=== PATIENT | male | born 1930 | race Caucasian/White ===

== ENCOUNTER 2018-02-07 00:27 | Inpatient (IN) ==
[2018-02-07] MEDS ORDERED: Ondansetron 4 MG/2 ML VIAL IVP ONE (01:14)
[2018-02-07] MEDS ORDERED: *HR* Nalbuphine 10 MG/ML AMPUL IV STA (01:30)
--- NOTE | 2018-02-07 01:40 | Emergency Department Note ---
Disposition Clinical Impression: Small bowel obstruction Abdominal pain Qualifiers: Abdominal location: generalized Qualified Code(s): R10.84 - Generalized abdominal pain Nausea and vomiting Qualifiers: Vomiting type: unspecified Vomiting Intractability: unspecified Qualified Code( s): R11.2 - Nausea with vomiting, unspecified Disposition: Admitted As Inpatient Condition: Fair Time of Disposition: 03:27 General Adult HPI - General Chief complaint: ED Abdominal Pain Stated complaint: abd pain Time Seen by Provider: 02/07/18 00:32 Source: EMS Mode of arrival: ambulatory Limitations: no limitations Nursing Notes Reviewed: Yes Vital Signs Reviewed: Yes - History of Present Illness HPI Narrative: Patient is a 7-year-old male with a past medical history of prostate cancer currently undergoing chemotherapy with recent radiation therapy presents for evaluation of intractable nausea and vomiting with abdominal distention. Patient was seen here earlier today in which she was visiting for acute urinary retention, abdominal pain, nausea vomiting. CT scan of his abdomen is done which showed no obstructing process. His nausea was well controlled and a Villanueva was placed for his urinary retention. Upon going home from discharge at approximately 1900 the patient had one glass of water and he has had 4-5 episodes of bilious emesis since then. He is brought back in for evaluation family is concerned that he is getting dehydrated. Pain Scale: 7 - Related Data Home Medications Medication Instructions Recorded Confirmed Cholecalciferol (D-3) [Vitamin D3] 1,000 unit PO DAILY 03/07/15 01/18/18 Clopidogrel [Plavix] 75 mg PO DAILY 03/07/15 01/18/18 Folic Acid 0.4 mg PO DAILY 03/07/15 01/18/18 Levothyroxine Sodium [Synthroid] 137 mcg PO DAILY 03/07/15 01/18/18 Metoprolol Tartrate 25 mg PO BID 03/07/15 01/18/18 Multivitamin [Multivitamins] 1 each PO DAILY 03/07/15 01/18/18 [place]-3 Fatty Acids/Fish Oil [Fish 1,000 mg PO DAILY 03/07/15 01/18/18 Oil 1,000 mg Capsule] Acetaminophen [Tylenol] 650 mg PO Q6HR PRN 02/28/17 01/18/18 Previous Rx's Medication Instructions Recorded Polyethylene Glycol 3350 [MiraLAX] 17 gm PO DAILY PRN #30 04/13/17 Furosemide [Lasix] 40 mg PO AD #15 tablet 08/31/17 Potassium Chloride [K-Tab ER] 10 meq PO AD #15 tablet.er 10/06/17 Abiraterone Acetate [Zytiga] 4 tab PO DAILY #120 tablet 12/13/17 predniSONE [PredniSONE] 5 mg PO BIDWM #60 tablet 01/10/18 Enzalutamide [Xtandi] 4 cap PO DAILY #120 capsule 01/18/18 Finasteride [Proscar] 1 tab PO DAILY #30 tablet 01/18/18 Omeprazole [PriLOSEC] 20 mg PO DAILY #30 cap 01/18/18 Morphine Immed Rel [Morphine 15 mg PO Q4HR PRN 3 Days #16 tab 02/06/18 Sulfate] Ondansetron ODT [Zofran ODT] 4 mg SL Q6HR PRN #12 tab.rapdis 02/06/18 Tamsulosin [Flomax] 2 cap PO DAILY #60 cap.er.24h 02/06/18 Allergies Allergy/AdvReac Type Severity Reaction Status Date / Time aspirin Allergy See Verified 01/11/18 15:19 Comments Onion Allergy Rash Verified 01/11/18 15:19 Penicillins Allergy See Verified 01/11/18 15:19 Comments All systems ED: reviewed and negative except as stated. Review of Systems: As Per HPI Constitutional: Denies: fever, chills Cardiovascular: Denies: chest pain, palpitations Respiratory: Denies: cough, dyspnea, wheezes Gastrointestinal: Reports: abdominal pain, nausea, vomiting. Denies: diarrhea, constipation, hematemesis, melena, hematochezia Genitourinary: Reports: other (villanueva in place) Past Medical History - Past Medical History Attestation: Yes The following information was validated with the patient. Medical history: Reports: cancer, hyperlipidemia, hypertension, myocardial infarction Surgical history: Reports: appendectomy, cholecystectomy Psychiatric history: Reports: no psych history - Social History Smoking Status: Never smoker Smokeless Tobacco Status: No Alcohol use: Reports: occasionally Drug use: Reports: none Physical Exam CONSTITUTIONAL: Alert and oriented X3, well-nourished, well appearing, in no apparent distress HEAD: Normocephalic; atraumatic. EYES: PERRL, no scleral icterus. NOSE: The nose is normal in appearance without rhinorrhea RESP: Normal chest excursion with respiration; breath sounds clear and equal bilaterally; no wheezes, rhonchi, or rales CARD: Regular rhythm, without murmurs, rub or gallop ABD: Distended; mild diffuse tenderness, soft,without rigidity, rebound or guarding SKIN: Normal for age and race; warm and dry; no apparent lesions - General Limitations: no limitations General appearance: alert, in no apparent distress Course Course Narrative: Plan at this time is to repeat basic labs. We will also order a KUB to rule out small bowel obstruction. Patient's nausea will be treated with Zofran and his pain with Nubain. We will reevaluate the patient. - Reevaluation(s) Reevaluation #1: Patient's KUB findings were suspicious for early to low grade obstruction rather than ileus. Patient will have an NG tube placed given that he continues to have emesis with IV antiemetics. I discussed the patient's case with the general surgeon insurance sales professional Dr. Garcia he agrees to see the patient the morning. No other recommendations other than he agrees with NG tube and keep the patient nothing by mouth. Time: 03:26 Vital Signs Temperature 98.1 F 02/07/18 00:28 Pulse Rate 75 02/07/18 00:28 Respiratory Rate 20 02/07/18 00:28 Blood Pressure 139/64 02/07/18 00:28 O2 Sat by Pulse Oximetry 94 02/07/18 00:28 Temperature 98.1 F 02/07/18 00:28 Pulse Rate 72 02/07/18 04:00 Respiratory Rate 20 02/07/18 00:28 Blood Pressure 133/65 02/07/18 04:00 O2 Sat by Pulse Oximetry 94 02/07/18 04:00 Oxygen Delivery Oxygen Delivery Room Air Medical Decision Making - Medical Records Medical records reviewed: Yes I reviewed the patient's medical records. - Lab Data Lab results reviewed: Yes I reviewed the patient's lab results. Result diagrams: 02/07/18 01:35 02/07/18 01:36 Lab Results 02/07/18 02/07/18 Range/Units 01:35 01:36 WBC 8.7 (4.3-11.1) K/mcL RBC 4.03 L (4.19-5.50) M/mcL Hgb 12.5 L (12.9-16.9) g/dL Hct 37.6 (37.5-50.1) % MCV 93.3 (83.0-100.0) fL MCH 31.0 (28.0-33.3) pg MCHC 33.2 (31.6-35.5) g/dL RDW 15.5 H (11.5-14.5) % Plt Count 137 L (140-400) K/mcL MPV 10.3 (9.4-12.4) fL Immature Gran % 0.3 (0-4) % Seg Neutrophils % 84.4 % Lymphocytes % 8.4 % Monocytes % 5.9 % Eosinophils % 0.8 % Basophils % 0.2 % Neutrophils # 7.4 (1.6-8.9) K/mcL Lymphocytes # 0.7 (0.6-4.6) K/mcL Monocytes # 0.5 (0.0-1.3) K/mcL Eosinophils # 0.1 (0.0-0.6) K/mcL Basophils # 0.0 (0.0-0.2) K/mcL Sodium 138 (136-145) mEq/L Potassium 4.0 (3.5-5.1) mEq/L Chloride 106 (98-107) mEq/L Carbon Dioxide 23 (23-29) mEq/L BUN 13 (8-23) mg/dL Creatinine 0.99 (0.70-1.30) mg/dL Est GFR ( Amer) > 60 (> 60) Est GFR (Non-Af Amer) > 60 (> 60) BUN/Creatinine Ratio 13 (6-26) Glucose 143 H (70-105) mg/dL Calculated Osmolality 289 (280-300) Calcium 9.9 (8.6-10.3) mg/dL Total Bilirubin 1.0 (0.3-1.0) mg/dL Direct Bilirubin 0.3 H (0.0-0.2) mg/dL Indirect Bilirubin 0.7 (0.0-1.2) mg/dL AST 19 (13-39) Units/L ALT 13 (7-52) Units/L Alkaline Phosphatase 108 H (34-104) Units/L Serum Total Protein 6.4 (6.4-8.9) g/dL Albumin 3.6 (3.5-5.7) g/dL Globulin 2.8 (2.4-3.5) g/dL Albumin/Globulin Ratio 1.3 (1.1-2.2) Lipase 8 L (11-82) Units/L - Radiology Data Radiology results reviewed: Yes I reviewed the patient's radiology results. KUB X-Ray 02/07/18 01:37 IMPRESSION: Findings suspicious for early/low-grade obstruction rather than ileus. D/ / Clarence Hsu / Clarence Hsu Interpreting Provider: Clarence Hsu
[2018-02-07 01:47] LABS: Hematocrit 37.6 % (37.5-50.1); Hemoglobin 12.5 g/dL (12.9-16.9); Mean Corpuscular Volume 93.3 fL (83.0-100.0); Red Blood Count 4.03 M/mcL (4.19-5.50)
[2018-02-07 01:48] LABS: Basophils % 0.2 %; Eosinophils # 0.1 K/mcL (0.0-0.6); Eosinophils % 0.8 %; Immature Granulocytes % 0.3 % (0-4); Lymphocytes # 0.7 K/mcL (0.6-4.6); Lymphocytes % 8.4 %; Mean Corpuscular HGB Conc 33.2 g/dL (31.6-35.5); Mean Platelet Volume 10.3 fL (9.4-12.4); Monocytes # 0.5 K/mcL (0.0-1.3); Monocytes % 5.9 %; Neutrophils # 7.4 K/mcL (1.6-8.9); Platelet Count 137 K/mcL (140-400); Red Cell Distribution Width 15.5 % (11.5-14.5); Segmented Neutrophils % 84.4 %
--- NOTE | 2018-02-07 02:04 | Emergency Department Note ---
Disposition Clinical Impression: Small bowel obstruction Abdominal pain Qualifiers: Abdominal location: generalized Qualified Code(s): R10.84 - Generalized abdominal pain Nausea and vomiting Qualifiers: Vomiting type: unspecified Vomiting Intractability: unspecified Qualified Code( s): R11.2 - Nausea with vomiting, unspecified Disposition: Admitted As Inpatient Condition: Fair Referrals: Kai Mahan MD [Primary Care Provider] - Forms: ED Satisfaction Letter, Work/School Release General Adult HPI - General Chief complaint: ED Abdominal Pain Stated complaint: abd pain Time Seen by Provider: 02/07/18 00:32 Source: EMS Mode of arrival: ambulatory Limitations: no limitations Nursing Notes Reviewed: Yes Vital Signs Reviewed: Yes - History of Present Illness Pain Scale: 7 - Related Data Home Medications Medication Instructions Recorded Confirmed Cholecalciferol (D-3) [Vitamin D3] 1,000 unit PO DAILY 03/07/15 01/18/18 Clopidogrel [Plavix] 75 mg PO DAILY 03/07/15 01/18/18 Folic Acid 0.4 mg PO DAILY 03/07/15 01/18/18 Levothyroxine Sodium [Synthroid] 137 mcg PO DAILY 03/07/15 01/18/18 Metoprolol Tartrate 25 mg PO BID 03/07/15 01/18/18 Multivitamin [Multivitamins] 1 each PO DAILY 03/07/15 01/18/18 [place]-3 Fatty Acids/Fish Oil [Fish 1,000 mg PO DAILY 03/07/15 01/18/18 Oil 1,000 mg Capsule] Acetaminophen [Tylenol] 650 mg PO Q6HR PRN 02/28/17 01/18/18 Previous Rx's Medication Instructions Recorded Polyethylene Glycol 3350 [MiraLAX] 17 gm PO DAILY PRN #30 04/13/17 Furosemide [Lasix] 40 mg PO AD #15 tablet 08/31/17 Potassium Chloride [K-Tab ER] 10 meq PO AD #15 tablet.er 10/06/17 Abiraterone Acetate [Zytiga] 4 tab PO DAILY #120 tablet 12/13/17 predniSONE [PredniSONE] 5 mg PO BIDWM #60 tablet 01/10/18 Enzalutamide [Xtandi] 4 cap PO DAILY #120 capsule 01/18/18 Finasteride [Proscar] 1 tab PO DAILY #30 tablet 01/18/18 Omeprazole [PriLOSEC] 20 mg PO DAILY #30 cap 01/18/18 Morphine Immed Rel [Morphine 15 mg PO Q4HR PRN 3 Days #16 tab 02/06/18 Sulfate] Ondansetron ODT [Zofran ODT] 4 mg SL Q6HR PRN #12 tab.rapdis 02/06/18 Tamsulosin [Flomax] 2 cap PO DAILY #60 cap.er.24h 02/06/18 Allergies Allergy/AdvReac Type Severity Reaction Status Date / Time aspirin Allergy See Verified 01/11/18 15:19 Comments Onion Allergy Rash Verified 01/11/18 15:19 Penicillins Allergy See Verified 01/11/18 15:19 Comments Constitutional: Denies: fever, chills Cardiovascular: Denies: chest pain, palpitations Respiratory: Denies: cough, dyspnea, wheezes Gastrointestinal: Reports: abdominal pain, nausea, vomiting. Denies: diarrhea, constipation, hematemesis, melena, hematochezia Genitourinary: Reports: other (villanueva in place) Past Medical History - Past Medical History Medical history: Reports: cancer, hyperlipidemia, hypertension, myocardial infarction Surgical history: Reports: appendectomy, cholecystectomy Psychiatric history: Reports: no psych history - Social History Smoking Status: Never smoker Smokeless Tobacco Status: No Alcohol use: Reports: occasionally Drug use: Reports: none Physical Exam - General Limitations: no limitations General appearance: alert, in no apparent distress Course Vital Signs Temperature 98.1 F 02/07/18 00:28 Pulse Rate 75 02/07/18 00:28 Respiratory Rate 20 02/07/18 00:28 Blood Pressure 139/64 02/07/18 00:28 O2 Sat by Pulse Oximetry 94 02/07/18 00:28 Temperature 98.1 F 02/07/18 00:28 Pulse Rate 75 02/07/18 00:28 Respiratory Rate 20 02/07/18 00:28 Blood Pressure 139/64 02/07/18 00:28 O2 Sat by Pulse Oximetry 94 02/07/18 00:28 Oxygen Delivery Oxygen Delivery Room Air Medical Decision Making - Lab Data Result diagrams: 02/07/18 01:35 02/07/18 01:36 Lab Results 02/07/18 02/07/18 Range/Units 01:35 01:36 WBC 8.7 (4.3-11.1) K/mcL RBC 4.03 L (4.19-5.50) M/mcL Hgb 12.5 L (12.9-16.9) g/dL Hct 37.6 (37.5-50.1) % MCV 93.3 (83.0-100.0) fL MCH 31.0 (28.0-33.3) pg MCHC 33.2 (31.6-35.5) g/dL RDW 15.5 H (11.5-14.5) % Plt Count 137 L (140-400) K/mcL MPV 10.3 (9.4-12.4) fL Immature Gran % 0.3 (0-4) % Seg Neutrophils % 84.4 % Lymphocytes % 8.4 % Monocytes % 5.9 % Eosinophils % 0.8 % Basophils % 0.2 % Neutrophils # 7.4 (1.6-8.9) K/mcL Lymphocytes # 0.7 (0.6-4.6) K/mcL Monocytes # 0.5 (0.0-1.3) K/mcL Eosinophils # 0.1 (0.0-0.6) K/mcL Basophils # 0.0 (0.0-0.2) K/mcL Sodium 138 (136-145) mEq/L Potassium 4.0 (3.5-5.1) mEq/L Chloride 106 (98-107) mEq/L Carbon Dioxide 23 (23-29) mEq/L BUN 13 (8-23) mg/dL Creatinine 0.99 (0.70-1.30) mg/dL Est GFR ( Amer) > 60 (> 60) Est GFR (Non-Af Amer) > 60 (> 60) BUN/Creatinine Ratio 13 (6-26) Glucose 143 H (70-105) mg/dL Calculated Osmolality 289 (280-300) Calcium 9.9 (8.6-10.3) mg/dL Total Bilirubin 1.0 (0.3-1.0) mg/dL Direct Bilirubin 0.3 H (0.0-0.2) mg/dL Indirect Bilirubin 0.7 (0.0-1.2) mg/dL AST 19 (13-39) Units/L ALT 13 (7-52) Units/L Alkaline Phosphatase 108 H (34-104) Units/L Serum Total Protein 6.4 (6.4-8.9) g/dL Albumin 3.6 (3.5-5.7) g/dL Globulin 2.8 (2.4-3.5) g/dL Albumin/Globulin Ratio 1.3 (1.1-2.2) Lipase 8 L (11-82) Units/L Attestation Statement - Attestation Attestation: I, Mitch Hidalgo MD, personally evaluated this patient and discussed their management with the resident physician. I reviewed the resident's note and agree with the documented findings, medical decision making, and plan of care. 87-year-old male presents to the emergency department with a complaint of abdominal pain and pressure with nausea and vomiting for 1 day prior to arrival. Patient was seen here earlier for the same symptoms and had a complete workup including a CT of the abdomen and pelvis. He was just discharged from this emergency department about 6 hours prior to this visit. He did complain of urinary retention on the previous visit and a Villanueva catheter was inserted. The Villanueva catheter has been draining well but since going home he states that it has not helped with the abdominal pressure and discomfort. He did take some pain medication and nausea medication this evening have her has continued to have multiple episodes of vomiting and pain. He did have a bowel movement today. No fever. On examination patient is a well-developed obese elderly male in no acute distress. He is alert and oriented 3. There is no cyanosis or diaphoresis. Breath sounds are clear and equal bilaterally. Heart regular rate and rhythm with a grade 3/6 systolic murmur. Abdomen is soft with moderate diffuse tenderness to light palpation with mild guarding. Mild distention. Labs reviewed. KUB shows multiple distended loops of small bowel suspicious for early or low-grade obstruction. On comparison to the CT scan performed earlier today the appearance of the dilated small bowel loops looks very similar to me. Dr. Lara discussed the case with the surgeon pharmacy operations coordinator, Dr. Garcia. He recommended an NG tube and nothing by mouth and will follow the patient in the hospital. The hospitalist, Dr. Rehman, was consulted and accepted admission of the patient.
[2018-02-07 02:09] LABS: Alanine Aminotransferase 13 Units/L (7-52); Albumin 3.6 g/dL (3.5-5.7); Albumin/Globulin Ratio 1.3 (1.1-2.2); Alkaline Phosphatase 108 Units/L (34-104); Aspartate Amino Transferase 19 Units/L (13-39); BUN/Creatinine Ratio 13 (6-26); Bilirubin,Direct 0.3 mg/dL (0.0-0.2); Bilirubin,Indirect 0.7 mg/dL (0.0-1.2); Blood Urea Nitrogen 13 mg/dL (8-23); Calcium 9.9 mg/dL (8.6-10.3); Carbon Dioxide 23 mEq/L (23-29); Chloride 106 mEq/L (98-107); Globulin 2.8 g/dL (2.4-3.5); Glucose 143 mg/dL (70-105); Lipase 8 Units/L (11-82); Osmolality,Calculated 289 (280-300); Sodium 138 mEq/L (136-145); Total Protein 6.4 g/dL (6.4-8.9); eGFR For African Americans > 60 (> 60); eGFR For Non-African Americans > 60 (> 60)
[2018-02-07] MEDS ORDERED: Promethazine 12.5 MG in 0.9 % Sodium Chloride 50 ML IVPB STA (03:45)
[2018-02-07] MEDS ORDERED: Naloxone 0.4 MG/ML INJ IVP PRN (06:26)
[2018-02-07] MEDS ORDERED: *HR* Promethazine 25 MG/ML VIAL IM PRN (06:28)
[2018-02-07] MEDS ORDERED: *HR* Promethazine 25 MG/ML VIAL IVP PRN (06:31)
[2018-02-07] MEDS ORDERED: Ondansetron 4 MG/2 ML VIAL IVP PRN ×2 (06:32→11:16)
--- NOTE | 2018-02-07 06:36 | Internal Med History&Physical ---
Date of Encounter: 02/07/18 Time of Encounter: 05:00 Internal Medicine - H&P: HPI Chief complaint: Small bowel obstruction Admitted From: Home Plans for Post Hospital Care: Home History of present illness: Mr. Roberts is a 87 year old male Patient presented to the emergency room for nausea and vomiting twice today. He states that his nausea became worse and worse about 2 days ago, when he woke up. He says he felt cramps in his lower stomach, nothing seemed to make it better. His early CT showed no obstruction in his abdomen, but a repeat CT in the evening showed possible early to low-grade obstruction rather than ileus. He also received a Fernandez for urinary retention. After his discharge he tried drinking a glass of water he had multiple episodes of vomiting at home. At that point he returned, and the repeat CT showed the obstruction. NG tube was placed, and his nausea improved significantly. He denies fever, and currently he has no complaints. Dr. Maya of general surgery was called by the ER, and agreed to see the patient in the morning. Patient has a history of prostate cancer, and is currently undergoing chemotherapy with recent radiation. Past Med Surg Social Fam HX - Past Medical History Medical history: cancer, hyperlipidemia, hypertension, myocardial infarction Additional medical history: prostate CA Psychiatric history: no psych history - Past Surgical History Surgical History: appendectomy, cholecystectomy Additional surgical history: back surgery. nose surgery - Social History Smoking Status: Never smoker Smokeless Tobacco Status: No Alcohol use: occasionally Drug use: none Internal Medicine - H&P: Meds Cholecalciferol (D-3) [Vitamin D3] 1,000 unit PO DAILY 03/07/15 [History] Clopidogrel [Plavix] 75 mg PO DAILY 03/07/15 [History] Folic Acid 0.4 mg PO DAILY 03/07/15 [History] Levothyroxine Sodium [Synthroid] 137 mcg PO DAILY 03/07/15 [History] Metoprolol Tartrate 25 mg PO BID 03/07/15 [History] Multivitamin [Multivitamins] 1 each PO DAILY 03/07/15 [History] [place]-3 Fatty Acids/Fish Oil [Fish Oil 1,000 mg Capsule] 1,000 mg PO DAILY 03/07 [History] Acetaminophen [Tylenol] 650 mg PO Q6HR PRN 02/28/17 [History] Polyethylene Glycol 3350 [MiraLAX] 17 gm PO DAILY PRN #30 04/13/17 [Rx] Furosemide [Lasix] 40 mg PO AD #15 tablet 08/31/17 [Rx] Potassium Chloride [K-Tab ER] 10 meq PO AD #15 tablet.er 10/06/17 [Rx] Abiraterone Acetate [Zytiga] 4 tab PO DAILY #120 tablet 12/13/17 [Rx] predniSONE [PredniSONE] 5 mg PO BIDWM #60 tablet 01/10/18 [Rx] Enzalutamide [Xtandi] 4 cap PO DAILY #120 capsule 01/18/18 [Rx] Finasteride [Proscar] 1 tab PO DAILY #30 tablet 01/18/18 [Rx] Omeprazole [PriLOSEC] 20 mg PO DAILY #30 cap 01/18/18 [Rx] Morphine Immed Rel [Morphine Sulfate] 15 mg PO Q4HR PRN 3 Days #16 tab 02/06/18 [Rx] Ondansetron ODT [Zofran ODT] 4 mg SL Q6HR PRN #12 tab.rapdis 02/06/18 [Rx] Tamsulosin [Flomax] 2 cap PO DAILY #60 cap.er.24h 02/06/18 [Rx] 3 Allergy/AdvReac Type Severity Reaction Status Date / Time aspirin Allergy See Verified 01/11/18 15:19 Comments Onion Allergy Rash Verified 01/11/18 15:19 Penicillins Allergy See Verified 01/11/18 15:19 Comments All Systems PM: A 10-system review of systems was performed and is negative for pertinent findings except as documented above in the HPI. - Constitutional Vitals: Temp Pulse Resp BP Pulse Ox 98.9 F 89 15 158/75 94 02/07/18 04:44 02/07/18 04:44 02/07/18 04:44 02/07/18 04:44 02/07/18 04:44 General appearance: Present: A&O X 3, pleasant, no acute distress - Head Head exam: Present: normal inspection - Eye Eye exam: Present: EOMI, normal appearance - Neck Neck exam general surgery: Present: full ROM - Respiratory Respiratory exam: Present: CTAB. Absent: rales, respiratory distress, wheezes, tachypnea - Cardiovascular Cardiovascular exam: Present: RRR. Absent: diastolic murmur, distant heart sounds, rubs - GI/Abdominal GI/Abdominal exam: Present: hypoactive bowel sounds, soft, tenderness. Absent: firm, guarding Additional comments: Mild tenderness left lower quadrant, and epigastric area with palpation. - Extremities Exam Extremities exam: Present: warm, radial pulses palpable and symmetrical. Absent : tenderness - Neurological Exam Neurological exam: Present: strengths equal and symetr throughout. Absent: altered, facial droop, speech deficit - Psychiatric Psychiatric exam: Present: normal mood. Absent: anxious - Skin Skin exam: Present: normal color, warm. Absent: vesicles Internal Med - H&P Results - Labs CBC & Chem 7: 02/07/18 01:35 02/07/18 01:36 - Assessment and plan (1) Small bowel obstruction Current Visit: Yes Status: Acute Assessment and plan: Repeat CT this evening showed early/low-grade obstruction rather than ileus. NG tube was placed, and patient's nausea and vomiting improved. Patient currently feels much better. General surgery consulted by the ER Follow-up Gen. surgery recommendations Continue NG tube to wall suction Advance diet as tolerated when able. Consider repeat CT of abdomen to ensure small bowel obstruction resolution. (2) Abdominal pain Current Visit: Yes Status: Acute Assessment and plan: Now much improved after NG placement. Likely secondary to small bowel obstruction. Continue to monitor Treatment as above. Qualifiers: Abdominal location: generalized Qualified Code(s): R10.84 - Generalized abdominal pain (3) Nausea and vomiting Current Visit: Yes Status: Acute Assessment and plan: Now much improved with NG tube placement, as well as IV Phenergan and Zofran. Patient is not complaining of nausea at this time. Continue to monitor Continue NG tube Continue nausea medicine as needed. Qualifiers: Vomiting type: unspecified Vomiting Intractability: unspecified Qualified Code(s): R11.2 - Nausea with vomiting, unspecified (4) Prostate cancer Current Visit: No Status: Chronic Assessment and plan: Patient has a history of prostate cancer, currently undergoing radiation and chemotherapy. Continue current management. - Time Spent With Patient Total time spent is greater than 50% in coordination of care (as documented) at patient's floor/unit and/or counseling patient: Greater than 35 minutes
--- NOTE | 2018-02-07 10:53 | General Surgery Consult Note ---
<Merlene Santoyo Mariluz - Last Filed: 02/07/18 11:02> Date of Encounter: 02/07/18 Time of Encounter: 10:34 Assessment and Plan (1) Small bowel obstruction Current Visit: Yes Status: Acute Small bowel obstruction versus ileus per CT (see below). Plan: NPO, bowel rest NG to LIWS IVF per primary team PRN antiemetics, G.I. and DVT prophylaxis may have one half small cup of ice Q8 hours for comfort serial abd exams repeat am labs we will follow along with you CT/CT abd pelvis wo no iv no oral IMPRESSION: 1. Uncomplicated diverticulosis. 2. Mildly prominent small bowel loops without evidence of obstruction. 3. In the setting of radiation treatment, no CT evidence of radiation enteritis is appreciated. 4. Prostatomegaly in urinary bladder wall thickening, mild 5. Tiny right pleural effusion. 6. Numerous sclerotic osseous foci as described suspicious for blastic metastatic disease. (2) Prostate cancer Current Visit: No Status: Chronic Management per primary team (3) Bone metastases Current Visit: No Status: Chronic Per primary team History of Present Illness Consult date: 02/06/18 (Dr. Eliseo Garcia) Reason for consult: other (possible SBO) Requesting physician: Anatoly Lara History of present illness: Jovan is an 87-year-old male (who is somewhat of a poor historian stating he is unable to remember the names of his medications, timing or past medical history, and difficulty with the timeline present illness), with a past medical history of prostate cancer, ASHD, HTN, hyperlipidemia, and a surgical history of appendectomy, cholecystectomy, reported back in no surgery but he is unclear procedures. He is also unclear of the time that his appendectomy and cholecystectomy were performed however states it was completed in [place]. He denies a smoking or drug use history and occasionally uses alcohol. He presented on 02/07/2018 with a report of nausea and vomiting for at least the past 4 days, associated with abdominal cramps, and had no aggravating or alleviating factors. He reports he was unable to hold down any liquids. Per record review he presented to the emergency department twice prior to admission. He had a CT earlier in the day which showed no obstruction but a repeat CT in the evening showed a possible low-grade obstruction. He also had a fully placed given acute urinary retention. And NG tube was placed and the patient stated almost immediate improvement in his discomfort. He is currently undergoing chemotherapy and radiation with Dr. Haines. He has followed by Dr. Saravia for urology. He denies fever, chills, headache, or dizziness, chest pain, shortness of breath. He endorses generalized weakness, feeling generally ill, nausea, vomiting, and difficulty urinating. He states prior to admission his last bowel movement was approximately 2 days ago. He denies black, bloody, or tarry stool. Surgery has been asked to evaluate this patient for recommendations regarding a possible small bowel obstruction. Past Med Surg Social Fam HX - Past Medical History Medical history: cancer, hyperlipidemia, hypertension, myocardial infarction Additional medical history: prostate CA Psychiatric history: no psych history - Past Surgical History Surgical History: appendectomy, cholecystectomy Additional surgical history: back surgery. nose surgery - Social History Smoking Status: Never smoker Smokeless Tobacco Status: No Alcohol use: occasionally Drug use: none Medications and Allergies Cholecalciferol (D-3) [Vitamin D3] 1,000 unit PO DAILY 03/07/15 [History] Clopidogrel [Plavix] 75 mg PO DAILY 03/07/15 [History] Folic Acid 0.4 mg PO DAILY 03/07/15 [History] Levothyroxine Sodium [Synthroid] 137 mcg PO DAILY 03/07/15 [History] Metoprolol Tartrate 25 mg PO BID 03/07/15 [History] Multivitamin [Multivitamins] 1 each PO DAILY 03/07/15 [History] [place]-3 Fatty Acids/Fish Oil [Fish Oil 1,000 mg Capsule] 1,000 mg PO DAILY 03/07 [History] Acetaminophen [Tylenol] 650 mg PO Q6HR PRN 02/28/17 [History] Polyethylene Glycol 3350 [MiraLAX] 17 gm PO DAILY PRN #30 04/13/17 [Rx] Potassium Chloride [K-Tab ER] 10 meq PO AD #15 tablet.er 10/06/17 [Rx] predniSONE [PredniSONE] 5 mg PO BIDWM #60 tablet 01/10/18 [Rx] Enzalutamide [Xtandi] 4 cap PO DAILY #120 capsule 01/18/18 [Rx] Finasteride [Proscar] 1 tab PO DAILY #30 tablet 01/18/18 [Rx] Omeprazole [PriLOSEC] 20 mg PO DAILY #30 cap 01/18/18 [Rx] Morphine Immed Rel [Morphine Sulfate] 15 mg PO Q4HR PRN 3 Days #16 tab 02/06/18 [Rx] Ondansetron ODT [Zofran ODT] 4 mg SL Q6HR PRN #12 tab.rapdis 02/06/18 [Rx] Tamsulosin [Flomax] 2 cap PO DAILY #60 cap.er.24h 02/06/18 [Rx] Atorvastatin [Lipitor] 40 mg PO HS 02/07/18 [History] Oxybutynin [Ditropan] 5 mg PO BID 02/07/18 [History] 3 Allergy/AdvReac Type Severity Reaction Status Date / Time aspirin Allergy See Verified 01/11/18 15:19 Comments Onion Allergy Rash Verified 01/11/18 15:19 Penicillins Allergy See Verified 01/11/18 15:19 Comments Review of Systems All systems PM: reviewed and no additional remarkable complaints except as stated All systems PM: The remainder of the systems were reviewed and are negative General Surgery Exam Initial Vital Signs Temp Pulse Resp BP Pulse Ox 98.1 F 75 20 139/64 94 02/07/18 00:28 02/07/18 00:28 02/07/18 00:28 02/07/18 00:28 02/07/18 00:28 VITAL SIGNS: Reviewed. See [facility] GENERAL: In no apparent distress. HEENT: Normocephalic, atraumatic, pupils are equal and reactive, extraocular motions intact, oropharynx is pink and moist, there is no neck adenopathy or JVD noted. CHEST/RESPIRATORY: The thorax is free from signs of trauma. Lung sounds: clear to auscultation, normal respiratory effort CARDIAC: RRR. Systolic murmur noted.. VASCULAR: No Edema. 2+ peripheral pulses. ABDOMEN: soft, distended, tympanic, tender in the bilateral lower quadrants, absent bowel sounds. NG is present and there is approximately 150 mL of thick yellow output (suspected fecalant. Fernandez catheters in place). MUSCULOSKELETAL: Good range of motion of all major joints. Extremities without clubbing, cyanosis or edema. NEUROLOGIC EXAM: Drowsy and oriented x 3. Speech normal. Follows commands. PSYCHIATRIC: Mood normal. SKIN: No rash or lesions. Exam Initial Vital Signs Temp Pulse Resp BP Pulse Ox 98.1 F 75 20 139/64 94 02/07/18 00:28 02/07/18 00:28 02/07/18 00:28 02/07/18 00:28 02/07/18 00:28 Results - Labs 02/07/18 01:35 02/07/18 01:36 Abnormal lab results RBC 4.03 M/mcL (4.19-5.50) L 02/07/18 01:35 Hgb 12.5 g/dL (12.9-16.9) L 02/07/18 01:35 RDW 15.5 % (11.5-14.5) H 02/07/18 01:35 Plt Count 137 K/mcL (140-400) L 02/07/18 01:35 Glucose 143 mg/dL (70-105) H 02/07/18 01:36 POC Glucose 120 mg/dL (70-99) H 02/07/18 06:27 Direct Bilirubin 0.3 mg/dL (0.0-0.2) H 02/07/18 01:36 Alkaline Phosphatase 108 Units/L (34-104) H 02/07/18 01:36 Lipase 8 Units/L (11-82) L 02/07/18 01:36 All other labs normal. - Imaging Abdominal x-ray: report reviewed CT scan - abdomen: report reviewed CT scan - pelvis: report reviewed Consult Discharge Plan - Plan Referrals: Kai Mahan MD [Primary Care Provider] - <Eliseo Garcia - Last Filed: 02/07/18 21:53> Date of Encounter: 02/07/18 Review of Systems All systems PM: The remainder of the systems were reviewed and are negative General Surgery Exam Initial Vital Signs Temp Pulse Resp BP Pulse Ox 98.1 F 75 20 139/64 94 02/07/18 00:28 02/07/18 00:28 02/07/18 00:28 02/07/18 00:28 02/07/18 00:28 Exam Initial Vital Signs Temp Pulse Resp BP Pulse Ox 98.1 F 75 20 139/64 94 02/07/18 00:28 02/07/18 00:28 02/07/18 00:28 02/07/18 00:28 02/07/18 00:28 Results - Labs 02/07/18 01:35 02/07/18 01:36 Abnormal lab results RBC 4.03 M/mcL (4.19-5.50) L 02/07/18 01:35 Hgb 12.5 g/dL (12.9-16.9) L 02/07/18 01:35 RDW 15.5 % (11.5-14.5) H 02/07/18 01:35 Plt Count 137 K/mcL (140-400) L 02/07/18 01:35 Glucose 143 mg/dL (70-105) H 02/07/18 01:36 POC Glucose 100 mg/dL (70-99) H 02/07/18 17:19 Direct Bilirubin 0.3 mg/dL (0.0-0.2) H 02/07/18 01:36 Alkaline Phosphatase 108 Units/L (34-104) H 02/07/18 01:36 Lipase 8 Units/L (11-82) L 02/07/18 01:36 All other labs normal. - Attending Attestation patient seen and examined. i have reviewed all pertinent notes, imaging and labs. i agree with the above assessment and plan.
[2018-02-07] MEDS ORDERED: Saliva Stimulant 100ml BOTTLE PO PRN (11:14)
[2018-02-07] MEDS ORDERED: BENZOCAINE/MENTHOL 1 LOZENGE (BAG OF 6) MM PRN (11:15)
--- NOTE | 2018-02-07 11:50 | Event Note ---
Date of Encounter: 02/07/18 Time of Encounter: 11:42 Patient was seen earlier this morning by hospitalist. Patient was seen and examined at bedside. Presently denies any abdominal pain nausea vomiting. NG is patent and draining. Seen by general surgery this a.m. okay for ice chips at this time. We will initiate on IV fluids continue to monitor chemistry replace electrolytes as needed continue with antiemetics and bowel rest. IV treatment plan with patient and family who are at bedside who verbalized understanding.
[2018-02-07] MEDS: 0.9 % Sodium Chloride 1,000 ML IVC SCH (12:00)
[2018-02-07] MEDS: Pantoprazole 40 MG VIAL IVP SCH (18:51)
[2018-02-07] MEDS: *HR* Heparin 5,000 UNIT/ML VIAL SQ SCH (18:52)
[2018-02-08 02:01] LABS: Basophils % 0.5 %; Eosinophils # 0.2 K/mcL (0.0-0.6); Eosinophils % 2.3 %; Hematocrit 35.3 % (37.5-50.1); Hemoglobin 11.7 g/dL (12.9-16.9); Immature Granulocytes % 0.2 % (0-4); Lymphocytes # 1.2 K/mcL (0.6-4.6); Lymphocytes % 18.9 %; Mean Corpuscular HGB Conc 33.1 g/dL (31.6-35.5); Mean Corpuscular Hemoglobin 31.7 pg (28.0-33.3); Mean Corpuscular Volume 95.7 fL (83.0-100.0); Monocytes # 0.4 K/mcL (0.0-1.3); Monocytes % 6.5 %; Platelet Count 106 K/mcL (140-400); Red Blood Count 3.69 M/mcL (4.19-5.50); Red Cell Distribution Width 15.5 % (11.5-14.5); Segmented Neutrophils % 71.6 %
[2018-02-08 02:05] LABS: Neutrophils # 4.7 K/mcL (1.6-8.9)
[2018-02-08 03:24] LABS: BUN/Creatinine Ratio 13 (6-26); Blood Urea Nitrogen 12 mg/dL (8-23); Calcium 8.9 mg/dL (8.6-10.3); Carbon Dioxide 26 mEq/L (23-29); Chloride 108 mEq/L (98-107); Glucose 89 mg/dL (70-105); Magnesium 2.1 mg/dL (1.6-2.6); Osmolality,Calculated 287 (280-300); Phosphorous 2.3 mg/dL (2.7-4.5); Potassium 3.9 mEq/L (3.5-5.1); Sodium 139 mEq/L (136-145); eGFR For African Americans > 60 (> 60); eGFR For Non-African Americans > 60 (> 60)
[2018-02-08] MEDS: *HR* Heparin 5,000 UNIT/ML VIAL SQ SCH ×2 (05:55→18:13)
[2018-02-08] MEDS: Pantoprazole 40 MG VIAL IVP SCH ×2 (05:56→18:11)
[2018-02-08] MEDS: 0.9 % Sodium Chloride 1,000 ML IVC SCH (08:37)
[2018-02-08] MEDS ORDERED: Methyl Salicylate/Menthol 28 GM TUBE TP PRN (11:17)
--- NOTE | 2018-02-08 11:29 | Internal Med Progress Note ---
Date of Encounter: 02/08/18 Time of Encounter: 11:27 - Assessment and plan (1) Small bowel obstruction Current Visit: Yes Status: Acute Assessment and plan: Small bowel obstruction versus ileus Continue with nothing by mouth bowel rest T with NG low wall suction Continue IV fluids monitor intake and output Surgery has been consulted and appreciate recommendations May have one half small cup of ice every 8 hours per surgery (2) Abdominal pain Current Visit: Yes Status: Acute Assessment and plan: No pain at this time NG in place Continue to monitor, cont NG Surgery consulted and appreciate recommendations Qualifiers: Abdominal location: generalized Qualified Code(s): R10.84 - Generalized abdominal pain (3) Nausea and vomiting Current Visit: Yes Status: Acute Assessment and plan: Improved continue with NG for now antiemetics Phenergan and Zofran as needed Continue with IV fluids while nothing by mouth Qualifiers: Vomiting type: unspecified Vomiting Intractability: unspecified Qualified Code(s): R11.2 - Nausea with vomiting, unspecified (4) Prostate cancer Current Visit: No Status: Chronic Assessment and plan: History prostate cancer with bone metastases continue with oncology outpatient treatment consult as needed - Time Spent With Patient Total time spent is greater than 50% in coordination of care (as documented) at patient's floor/unit and/or counseling patient: - Subjective Interval history: Patient seen and examined at bedside. Complains of artriti pain in hand. Denies any N/V/D had an episode flatus no other gas passed. - Constitutional Vitals: Temp Pulse Resp BP Pulse Ox 97.7 F 59 15 129/71 93 02/08/18 07:29 02/08/18 07:29 02/08/18 07:29 02/08/18 07:29 02/08/18 07:29 General appearance: Present: A&O X 3, pleasant, no acute distress - Head Head exam: Present: atraumatic, normocephalic - Eye Eye exam: Present: PERRL, conjuntiva pink, sclera anicteric Pupils: Present: PERRL - Neck Neck exam general surgery: Present: supple, trachea midline. Absent: lymphadenopathy - Respiratory Respiratory exam: Present: CTAB. Absent: accessory muscle use, rales, rhonchi, wheezes - Cardiovascular Cardiovascular exam: Present: RRR, +S1, +S2. Absent: diastolic murmur, gallop, rubs, systolic murmur - GI/Abdominal GI/Abdominal exam: Present: normal bowel sounds, soft, no peritoneal signs. Absent: distended, tenderness - Extremities Exam Extremities exam: Present: warm, radial pulses palpable and symmetrical. Absent : calf tenderness, cyanotic, pedal edema - Neurological Exam Neurological exam: Present: CN II-XII intact, oriented X3, no focal deficits. Absent: pronater drift, facial droop, speech deficit - Skin Skin exam: Present: dry, intact Internal Medicine: Result - Labs CBC & Chem 7: 02/08/18 01:29 02/08/18 01:29 Labs: Short CBC 02/08/18 Range/Units 01:29 WBC 6.5 (4.3-11.1) K/mcL Hgb 11.7 L (12.9-16.9) g/dL Hct 35.3 L (37.5-50.1) % Plt Count 106 L (140-400) K/mcL Neutrophils # 4.7 (1.6-8.9) K/mcL BMP 02/08/18 01:29 Sodium 139 Potassium 3.9 Chloride 108 H Carbon Dioxide 26 BUN 12 Creatinine 0.96 Glucose 89 Calcium 8.9 - VTE Documentation of Mechanical Device: Intermittent pneumatic compression device Consult Discharge Plan - Plan Referrals: Kai Mahan MD [Primary Care Provider] -
--- NOTE | 2018-02-08 11:41 | General Surgery Progress Note ---
Date of Encounter: 02/08/18 Time of Encounter: 11:30 - Assessment and Plan (1) Small bowel obstruction Current Visit: Yes Status: Acute Small bowel obstruction versus ileus per CT Plan: NPO, bowel rest NG to LIWS 2V abdominal x-ray today Consider SBFT with gastrograffin in the next 24-48 hours Continue IVF per primary team G.I. and DVT prophylaxis may have one half small cup of ice Q8 hours for comfort serial abd exams Surgery will continue to follow along and assess progress (2) Prostate cancer Current Visit: No Status: Chronic (3) Bone metastases Current Visit: No Status: Chronic Subjective Patient reports: no new complaints, feels better, flatus (small amount of flatus this morning), afebrile Objective Vital Signs - Last 8 Hours Temp Pulse Resp BP Pulse Ox 02/08/18 07:29 97.7 F 59 15 129/71 93 02/08/18 04:14 98.1 F 67 16 127/76 94 Intake and Output 02/07/18 02/08/18 02/08/18 23:59 07:59 15:59 Intake Total 0 / 0 0 / 0 1000 / 1000 Output Total 550 / 550 450 / 450 Balance -550 / -550 -450 / -450 1000 / 1000 Intake: IV Fluids 1000 / 1000 0.9 % Sodium Chloride 1,000 ML 1000 / 1000 @ 50 mls/hr IVC .Q20H [facility] Rx#: [id number] Oral 0 / 0 0 / 0 0 / 0 Output: Catheter 400 / 400 250 / 250 Gastric Drainage 150 / 150 200 / 200 Other: Meal NPO Percent of Meal Consumed 0% Weight 105.5 kg Blood Glucose* 95 84 Patient Weight 02/08/18 23:59 Weight 105.5 kg - General physical appearance well developed, well nourished, no distress - Eyes normal ocular movement - ENT dry mucosa, atraumatic, normocephalic - Neck Neck exam: trachea midline - Respiratory normal respiratory effort, clear to auscultation - Cardiovascular Cardiovascular exam: Present: RRR - Abdomen Abdomen: Present: bowel sounds present (minimal, hypoactive), soft, non tender, wound (NG tube to LIWS with approximately 300ml of drainage since midnight) - Genitourinary other (villan[place] catheter to SD) - Neurologic CN 2-12 grossly intact - Psychiatric oriented to time, oriented to person, oriented to place, speech is normal, memory intact - Labs 02/08/18 01:29 02/08/18 01:29 Diabetes panel 02/08/18 Range/Units 01:29 Sodium 139 (136-145) mEq/L Potassium 3.9 (3.5-5.1) mEq/L Chloride 108 H (98-107) mEq/L Carbon Dioxide 26 (23-29) mEq/L BUN 12 (8-23) mg/dL Creatinine 0.96 (0.70-1.30) mg/dL Glucose 89 (70-105) mg/dL Calcium 8.9 (8.6-10.3) mg/dL Calcium panel 02/08/18 Range/Units 01:29 Calcium 8.9 (8.6-10.3) mg/dL Phosphorus 2.3 L (2.7-4.5) mg/dL Pituitary panel 02/08/18 Range/Units 01:29 Sodium 139 (136-145) mEq/L Potassium 3.9 (3.5-5.1) mEq/L Chloride 108 H (98-107) mEq/L Carbon Dioxide 26 (23-29) mEq/L BUN 12 (8-23) mg/dL Creatinine 0.96 (0.70-1.30) mg/dL Glucose 89 (70-105) mg/dL Calcium 8.9 (8.6-10.3) mg/dL Adrenal panel 02/08/18 Range/Units 01:29 Sodium 139 (136-145) mEq/L Potassium 3.9 (3.5-5.1) mEq/L Chloride 108 H (98-107) mEq/L Carbon Dioxide 26 (23-29) mEq/L BUN 12 (8-23) mg/dL Creatinine 0.96 (0.70-1.30) mg/dL Glucose 89 (70-105) mg/dL Calcium 8.9 (8.6-10.3) mg/dL - VTE Documentation of Mechanical Device: Intermittent pneumatic compression device Consult Discharge Plan - Plan Referrals: Kai Mahan MD [Primary Care Provider] - - Attending Attestation For this encounter, I have reviewed the CABLE INSPECTOR or PA documentation, treatment plan, and medical decision making; and I have had face to face time with this patient.
[2018-02-08] MEDS: MethylPREDNISolone 40 MG/ML VIAL IVP SCH (18:09)
[2018-02-09] MEDS: 0.9 % Sodium Chloride 1,000 ML IVC SCH (06:24)
[2018-02-09] MEDS: Pantoprazole 40 MG VIAL IVP SCH ×2 (06:25→18:04)
[2018-02-09] MEDS: MethylPREDNISolone 40 MG/ML VIAL IVP SCH (06:25)
[2018-02-09] MEDS: *HR* Heparin 5,000 UNIT/ML VIAL SQ SCH ×2 (06:25→18:04)
[2018-02-09 06:50] LABS: Basophils % 0.2 %; Eosinophils # 0.1 K/mcL (0.0-0.6); Eosinophils % 1.8 %; Hematocrit 34.3 % (37.5-50.1); Hemoglobin 11.4 g/dL (12.9-16.9); Immature Granulocytes % 0.6 % (0-4); Lymphocytes # 1.2 K/mcL (0.6-4.6); Lymphocytes % 19.4 %; Mean Corpuscular HGB Conc 33.2 g/dL (31.6-35.5); Mean Corpuscular Hemoglobin 31.8 pg (28.0-33.3); Mean Corpuscular Volume 95.5 fL (83.0-100.0); Mean Platelet Volume 10.2 fL (9.4-12.4); Monocytes # 0.4 K/mcL (0.0-1.3); Monocytes % 6.9 %; Neutrophils # 4.4 K/mcL (1.6-8.9); Platelet Count 101 K/mcL (140-400); Red Blood Count 3.59 M/mcL (4.19-5.50); Red Cell Distribution Width 15.3 % (11.5-14.5); Segmented Neutrophils % 71.1 %
[2018-02-09 07:08] LABS: BUN/Creatinine Ratio 15 (6-26); Blood Urea Nitrogen 13 mg/dL (8-23); Calcium 8.8 mg/dL (8.6-10.3); Carbon Dioxide 24 mEq/L (23-29); Chloride 110 mEq/L (98-107); Glucose 77 mg/dL (70-105); Osmolality,Calculated 289 (280-300); Potassium 3.8 mEq/L (3.5-5.1); Sodium 140 mEq/L (136-145); eGFR For African Americans > 60 (> 60); eGFR For Non-African Americans > 60 (> 60)
--- NOTE | 2018-02-09 10:44 | Internal Med Progress Note ---
Date of Encounter: 02/09/18 Time of Encounter: 10:44 - Assessment and plan (1) Small bowel obstruction Current Visit: Yes Status: Acute Assessment and plan: Small bowel obstruction versus ileus Stop IV fluids monitor intake and output Surgery has been consulted and appreciate recommendations-underwent a small bowel follow-through this a.m.- May have clear liquid diet per surgery Small bowel follow-through IMPRESSION: Moderately narrowed loop of distal ileum within the right mid abdomen without bowel obstruction identified. The degree of small bowel distention has improved since the previous CT from 02/06/2018 suggesting a resolving partial small bowel obstruction. The etiology of the narrowed loop of bowel is uncertain, however, may be due to adhesions if there is history of prior abdominal surgery. (2) Abdominal pain Current Visit: Yes Status: Acute Assessment and plan: No pain at this time NG in place Continue to monitor, cont NG Surgery consulted and appreciate recommendations Qualifiers: Abdominal location: generalized Qualified Code(s): R10.84 - Generalized abdominal pain (3) Nausea and vomiting Current Visit: Yes Status: Acute Assessment and plan: Improved- continue antiemetics Phenergan and Zofran as needed Hold IVF while taking in orals Qualifiers: Vomiting type: unspecified Vomiting Intractability: unspecified Qualified Code(s): R11.2 - Nausea with vomiting, unspecified (4) Prostate cancer Current Visit: No Status: Chronic Assessment and plan: History prostate cancer with bone metastases continue with oncology outpatient treatment consult as needed - Time Spent With Patient Total time spent is greater than 50% in coordination of care (as documented) at patient's floor/unit and/or counseling patient: - Subjective Interval history: Patient seen and examined at bedside. No complaints of pain or discomfort at this time. He did complete a small bowel follow-through is a.m. tolerated procedure well. He did have a large bowel movement this a.m. states he feels much better. I did review treatment plan with the patient who verbalized understanding - Constitutional Vitals: Temp Pulse Resp BP Pulse Ox 97.6 F 63 15 157/73 93 02/09/18 07:11 02/09/18 07:11 02/09/18 07:11 02/09/18 07:11 02/09/18 07:11 General appearance: Present: A&O X 3, pleasant, no acute distress - Head Head exam: Present: atraumatic, normocephalic - Eye Eye exam: Present: PERRL, conjuntiva pink, sclera anicteric Pupils: Present: PERRL - Neck Neck exam general surgery: Present: supple, trachea midline. Absent: lymphadenopathy - Respiratory Respiratory exam: Present: CTAB. Absent: accessory muscle use, rales, rhonchi, wheezes - Cardiovascular Cardiovascular exam: Present: RRR, +S1, +S2, systolic murmur. Absent: diastolic murmur, gallop, rubs - Extremities Exam Extremities exam: Present: warm, radial pulses palpable and symmetrical. Absent : calf tenderness, cyanotic, pedal edema - Neurological Exam Neurological exam: Present: CN II-XII intact, oriented X3, no focal deficits. Absent: pronater drift, facial droop, speech deficit - Skin Skin exam: Present: dry, intact Internal Medicine: Result - Labs CBC & Chem 7: 02/09/18 06:36 02/09/18 06:36 Labs: Short CBC 02/09/18 Range/Units 06:36 WBC 6.2 (4.3-11.1) K/mcL Hgb 11.4 L (12.9-16.9) g/dL Hct 34.3 L (37.5-50.1) % Plt Count 101 L (140-400) K/mcL Neutrophils # 4.4 (1.6-8.9) K/mcL BMP 02/09/18 06:36 Sodium 140 Potassium 3.8 Chloride 110 H Carbon Dioxide 24 BUN 13 Creatinine 0.84 Glucose 77 Calcium 8.8 - Impressions Impressions Small Bowel X-Ray 02/09/18 07:49 IMPRESSION: Moderately narrowed loop of distal ileum within the right mid abdomen without bowel obstruction identified. The degree of small bowel distention has improved since the previous CT from 02/06/2018 suggesting a resolving partial small bowel obstruction. The etiology of the narrowed loop of bowel is uncertain, however, may be due to adhesions if there is history of prior abdominal surgery. D/ /09/2018 10:14:14 Wagner Medrano MD / nomi Interpreting Provider: Wagner Medrano MD - VTE Documentation of Mechanical Device: Intermittent pneumatic compression device Consult Discharge Plan - Plan Referrals: Kai Mahan MD [Primary Care Provider] -
--- NOTE | 2018-02-09 12:06 | General Surgery Progress Note ---
<Merlene Santoyo - Last Filed: 02/09/18 12:24> Date of Encounter: 02/09/18 Time of Encounter: 12:06 - Assessment and Plan (1) Small bowel obstruction Current Visit: Yes Status: Acute Small bowel obstruction versus ileus per CT (see below). Plan: SBFT with improving dilated small bowel Pt is having BMs and passing flatus d/c NG and add CLD, advance as tolerated Anticipate sign off per attending attestation. Thank you for allowing us to participate in Mr. Roberts's care. Please reconsult if questions or needs arise (2) Prostate cancer Current Visit: No Status: Chronic Management per primary team (3) Bone metastases Current Visit: No Status: Chronic Per primary team Subjective Patient reports: no new complaints, feels better, pain is less, voiding w/o difficulty, flatus, bowel movement, afebrile Objective Vital Signs - Last 8 Hours Temp Pulse Resp BP Pulse Ox 02/09/18 11:01 98.9 F 77 15 124/69 92 02/09/18 07:11 97.6 F 63 15 157/73 93 Intake and Output 02/08/18 02/09/18 02/09/18 23:59 07:59 15:59 Intake Total 0 / 0 1000 / 1000 0 / 0 Output Total 1425 / 1425 0 / 0 Balance 0 / 0 -425 / -425 0 / 0 Intake: IV Fluids 1000 / 1000 0.9 % Sodium Chloride 1,000 ML 1000 / 1000 @ 50 mls/hr IVC .Q20H [facility] Rx#: [id number] Oral 0 / 0 0 / 0 0 / 0 Output: Catheter 1000 / 1000 0 / 0 Gastric Drainage 425 / 425 0 / 0 Other: Meal NPO npo Percent of Meal Consumed 0% Blood Glucose* 90 82 101 - General physical appearance no distress, other - Eyes normal ocular movement - ENT atraumatic, normocephalic - Neck Neck exam: trachea midline - Respiratory normal expansion, normal respiratory effort, clear to auscultation - Cardiovascular Cardiovascular exam: Present: distant heart sounds - Abdomen Abdomen: Present: bowel sounds present, soft, non tender Hernia: none - Integumentary no growths - Neurologic normal coordination, normal sensation - Musculoskeletal normal posture - Psychiatric oriented to time, oriented to person, memory intact - Labs 02/09/18 06:36 02/09/18 06:36 Diabetes panel 02/09/18 Range/Units 06:36 Sodium 140 (136-145) mEq/L Potassium 3.8 (3.5-5.1) mEq/L Chloride 110 H (98-107) mEq/L Carbon Dioxide 24 (23-29) mEq/L BUN 13 (8-23) mg/dL Creatinine 0.84 (0.70-1.30) mg/dL Glucose 77 (70-105) mg/dL Calcium 8.8 (8.6-10.3) mg/dL Calcium panel 02/09/18 Range/Units 06:36 Calcium 8.8 (8.6-10.3) mg/dL Pituitary panel 02/09/18 Range/Units 06:36 Sodium 140 (136-145) mEq/L Potassium 3.8 (3.5-5.1) mEq/L Chloride 110 H (98-107) mEq/L Carbon Dioxide 24 (23-29) mEq/L BUN 13 (8-23) mg/dL Creatinine 0.84 (0.70-1.30) mg/dL Glucose 77 (70-105) mg/dL Calcium 8.8 (8.6-10.3) mg/dL Adrenal panel 02/09/18 Range/Units 06:36 Sodium 140 (136-145) mEq/L Potassium 3.8 (3.5-5.1) mEq/L Chloride 110 H (98-107) mEq/L Carbon Dioxide 24 (23-29) mEq/L BUN 13 (8-23) mg/dL Creatinine 0.84 (0.70-1.30) mg/dL Glucose 77 (70-105) mg/dL Calcium 8.8 (8.6-10.3) mg/dL - VTE Documentation of Mechanical Device: Intermittent pneumatic compression device Consult Discharge Plan - Plan Referrals: Kai Mahan MD [Primary Care Provider] - <Eliseo Garcia - Last Filed: 02/09/18 20:13> Date of Encounter: 02/09/18 Objective Vital Signs - Last 8 Hours Temp Pulse Resp BP Pulse Ox 02/09/18 20:00 98.6 F 75 15 134/58 92 02/09/18 13:52 98.0 F 80 15 132/70 92 Intake and Output 02/09/18 02/09/18 02/09/18 07:59 15:59 23:59 Intake Total 1000 / 1000 0 / 0 0 / 0 Output Total 1425 / 1425 250 / 250 0 / 0 Balance -425 / -425 -250 / -250 0 / 0 Intake: IV Fluids 1000 / 1000 0.9 % Sodium Chloride 1,000 ML 1000 / 1000 @ 50 mls/hr IVC .Q20H [facility] Rx#: [id number] Oral 0 / 0 0 / 0 0 / 0 Output: Urine 0 / 0 Catheter 1000 / 1000 250 / 250 Gastric Drainage 425 / 425 0 / 0 Other: Meal npo NPO Stool Size Small Stool Consistency liquid # Bowel Movements 1 Blood Glucose* 82 101 - Labs 02/09/18 06:36 02/09/18 06:36 Diabetes panel 02/09/18 Range/Units 06:36 Sodium 140 (136-145) mEq/L Potassium 3.8 (3.5-5.1) mEq/L Chloride 110 H (98-107) mEq/L Carbon Dioxide 24 (23-29) mEq/L BUN 13 (8-23) mg/dL Creatinine 0.84 (0.70-1.30) mg/dL Glucose 77 (70-105) mg/dL Calcium 8.8 (8.6-10.3) mg/dL Calcium panel 02/09/18 Range/Units 06:36 Calcium 8.8 (8.6-10.3) mg/dL Pituitary panel 02/09/18 Range/Units 06:36 Sodium 140 (136-145) mEq/L Potassium 3.8 (3.5-5.1) mEq/L Chloride 110 H (98-107) mEq/L Carbon Dioxide 24 (23-29) mEq/L BUN 13 (8-23) mg/dL Creatinine 0.84 (0.70-1.30) mg/dL Glucose 77 (70-105) mg/dL Calcium 8.8 (8.6-10.3) mg/dL Adrenal panel 02/09/18 Range/Units 06:36 Sodium 140 (136-145) mEq/L Potassium 3.8 (3.5-5.1) mEq/L Chloride 110 H (98-107) mEq/L Carbon Dioxide 24 (23-29) mEq/L BUN 13 (8-23) mg/dL Creatinine 0.84 (0.70-1.30) mg/dL Glucose 77 (70-105) mg/dL Calcium 8.8 (8.6-10.3) mg/dL - Attending Attestation Patient seen and examined. I have reviewed all labs, imaging, and notes. I agree with the above assessment and plan and wish to add the following... No obstruction on imaging; having bowel function; okay to d/c NG tube;
[2018-02-09] MEDS: predniSONE 5 MG TABLET PO SCH (18:04)
[2018-02-10 01:58] LABS: Basophils % 0.2 %; Eosinophils # 0.1 K/mcL (0.0-0.6); Eosinophils % 1.3 %; Hematocrit 34.1 % (37.5-50.1); Hemoglobin 11.4 g/dL (12.9-16.9); Immature Granulocytes % 0.5 % (0-4); Mean Corpuscular HGB Conc 33.4 g/dL (31.6-35.5); Mean Corpuscular Hemoglobin 31.4 pg (28.0-33.3); Mean Corpuscular Volume 93.9 fL (83.0-100.0); Mean Platelet Volume 10.3 fL (9.4-12.4); Monocytes # 0.5 K/mcL (0.0-1.3); Monocytes % 7.5 %; Neutrophils # 4.4 K/mcL (1.6-8.9); Platelet Count 116 K/mcL (140-400); Red Blood Count 3.63 M/mcL (4.19-5.50); Red Cell Distribution Width 15.3 % (11.5-14.5); Segmented Neutrophils % 73.5 %
[2018-02-10 02:17] LABS: BUN/Creatinine Ratio 18 (6-26); Blood Urea Nitrogen 16 mg/dL (8-23); Calcium 9.1 mg/dL (8.6-10.3); Carbon Dioxide 25 mEq/L (23-29); Chloride 111 mEq/L (98-107); Glucose 116 mg/dL (70-105); Osmolality,Calculated 294 (280-300); Potassium 3.5 mEq/L (3.5-5.1); Sodium 141 mEq/L (136-145); eGFR For African Americans > 60 (> 60); eGFR For Non-African Americans > 60 (> 60)
[2018-02-10] MEDS: *HR* Heparin 5,000 UNIT/ML VIAL SQ SCH ×2 (06:52→17:33)
[2018-02-10] MEDS: Pantoprazole 40 MG VIAL IVP SCH ×2 (06:52→17:33)
--- NOTE | 2018-02-10 08:54 | General Surgery Progress Note ---
Date of Encounter: 02/10/18 Time of Encounter: 08:53 - Assessment and Plan (1) Small bowel obstruction Current Visit: Yes Status: Acute 87M with SBO now with return of bowel function diet as tolerated activity as tolerated okay to discharge from surgery standpoint once tolerating a diet general surgery will sign off. Please call with any new questions or concerns. Subjective Patient reports: no new complaints, tolerating liquids well, flatus, bowel movement, afebrile Objective Vital Signs - Last 8 Hours Temp Pulse Resp BP Pulse Ox 02/10/18 07:20 97.8 F 59 14 143/69 94 02/10/18 04:00 98.0 F 56 15 121/57 94 Intake and Output 02/09/18 02/10/18 02/10/18 23:59 07:59 15:59 Intake Total 0 / 0 0 / 0 Output Total 0 / 0 450 / 450 Balance 0 / 0 -450 / -450 Intake: Oral 0 / 0 0 / 0 Output: Urine 0 / 0 Catheter 0 / 0 450 / 450 Urethral (Fernandez) 0 / 0 Other: Meal NPO Weight 105.8 kg Patient Weight 02/10/18 23:59 Weight 105.8 kg - General physical appearance no distress - Respiratory normal expansion, normal respiratory effort - Cardiovascular Cardiovascular exam: Present: RRR - Abdomen Abdomen: Present: soft, non tender - Neurologic CN 2-12 grossly intact - Psychiatric oriented to time, oriented to person, oriented to place - Labs 02/10/18 01:35 02/10/18 01:35 Diabetes panel 02/10/18 Range/Units 01:35 Sodium 141 (136-145) mEq/L Potassium 3.5 (3.5-5.1) mEq/L Chloride 111 H (98-107) mEq/L Carbon Dioxide 25 (23-29) mEq/L BUN 16 (8-23) mg/dL Creatinine 0.91 (0.70-1.30) mg/dL Glucose 116 H (70-105) mg/dL Calcium 9.1 (8.6-10.3) mg/dL Calcium panel 02/10/18 Range/Units 01:35 Calcium 9.1 (8.6-10.3) mg/dL Pituitary panel 02/10/18 Range/Units 01:35 Sodium 141 (136-145) mEq/L Potassium 3.5 (3.5-5.1) mEq/L Chloride 111 H (98-107) mEq/L Carbon Dioxide 25 (23-29) mEq/L BUN 16 (8-23) mg/dL Creatinine 0.91 (0.70-1.30) mg/dL Glucose 116 H (70-105) mg/dL Calcium 9.1 (8.6-10.3) mg/dL Adrenal panel 02/10/18 Range/Units 01:35 Sodium 141 (136-145) mEq/L Potassium 3.5 (3.5-5.1) mEq/L Chloride 111 H (98-107) mEq/L Carbon Dioxide 25 (23-29) mEq/L BUN 16 (8-23) mg/dL Creatinine 0.91 (0.70-1.30) mg/dL Glucose 116 H (70-105) mg/dL Calcium 9.1 (8.6-10.3) mg/dL - VTE Documentation of Mechanical Device: Intermittent pneumatic compression device Consult Discharge Plan - Plan Referrals: Kai Mahan MD [Primary Care Provider] -
[2018-02-10] MEDS ORDERED: Enzalutamide [Xtandi] 40 MG PO SCH (09:00)
[2018-02-10] MEDS: Finasteride 5 MG TABLET PO SCH (09:04)
[2018-02-10] MEDS: Folic Acid 1 MG TABLET PO SCH (09:04)
[2018-02-10] MEDS: predniSONE 5 MG TABLET PO SCH ×3 (09:04→17:41)
--- NOTE | 2018-02-10 11:20 | Internal Med Progress Note ---
Date of Encounter: 02/10/18 Time of Encounter: 11:20 - Assessment and plan (1) Small bowel obstruction Current Visit: Yes Status: Acute Assessment and plan: Small bowel obstruction Monitor intake and output Surgery has been consulted and appreciate recommendations-okay advancing diet May have clear liquid diet per surgery Is tolerating oral intake may be discharged per surgery's standpoint Small bowel follow-through IMPRESSION: Moderately narrowed loop of distal ileum within the right mid abdomen without bowel obstruction identified. The degree of small bowel distention has improved since the previous CT from 02/06/2018 suggesting a resolving partial small bowel obstruction. The etiology of the narrowed loop of bowel is uncertain, however, may be due to adhesions if there is history of prior abdominal surgery. (2) Abdominal pain Current Visit: Yes Status: Acute Assessment and plan: NG has been discontinued no abdominal pain at this time Continue to monitor Surgery consulted and appreciate recommendations Qualifiers: Abdominal location: generalized Qualified Code(s): R10.84 - Generalized abdominal pain (3) Nausea and vomiting Current Visit: Yes Status: Resolved Assessment and plan: Resolved continue antiemetics Phenergan and Zofran as needed Tolerating clear liquids and advance as tolerated Qualifiers: Vomiting type: unspecified Vomiting Intractability: unspecified Qualified Code(s): R11.2 - Nausea with vomiting, unspecified (4) Prostate cancer Current Visit: No Status: Chronic Assessment and plan: History prostate cancer with bone metastases continue with oncology outpatient treatment consult as needed (5) Urinary retention Current Visit: Yes Status: Acute Assessment and plan: 1 patient did have urinary retention and initial ER visit and for catheter was placed. We will continue with Fernandez catheter have patient follow-up with urology/oncology (6) DVT prophylaxis Current Visit: Yes Status: Acute Assessment and plan: Heparin subcutaneous - Time Spent With Patient Total time spent is greater than 50% in coordination of care (as documented) at patient's floor/unit and/or counseling patient: - Subjective Interval history: Patient seen and examined at bedside. No complaints of pain or discomfort at this time. NG has been removed patient tolerating clear liquid diet surgery okay with advancing diet. We will pin site today if tolerating oral intake we will discharge in a.m. patient has been passing gas and has had bowel movements last bowel movement was yesterday I did review treatment plan with the patient verbalized understanding - Constitutional Vitals: Temp Pulse Resp BP Pulse Ox 97.8 F 59 14 143/69 94 02/10/18 07:20 02/10/18 07:20 02/10/18 07:20 02/10/18 07:20 02/10/18 07:20 General appearance: Present: A&O X 3, pleasant, no acute distress - Head Head exam: Present: atraumatic, normocephalic - Eye Eye exam: Present: PERRL, conjuntiva pink, sclera anicteric Pupils: Present: PERRL - Neck Neck exam general surgery: Present: supple, trachea midline. Absent: lymphadenopathy - Respiratory Respiratory exam: Present: CTAB. Absent: accessory muscle use, rales, rhonchi, wheezes - Cardiovascular Cardiovascular exam: Present: RRR, +S1, +S2. Absent: diastolic murmur, gallop, rubs, systolic murmur - GI/Abdominal GI/Abdominal exam: Present: normal bowel sounds, soft, no peritoneal signs. Absent: distended, tenderness - Extremities Exam Extremities exam: Present: warm, radial pulses palpable and symmetrical. Absent : calf tenderness, cyanotic, pedal edema - Neurological Exam Neurological exam: Present: CN II-XII intact, oriented X3, no focal deficits. Absent: pronater drift, facial droop, speech deficit - Skin Skin exam: Present: dry, intact Internal Medicine: Result - Labs CBC & Chem 7: 02/10/18 01:35 02/10/18 01:35 Labs: Short CBC 02/10/18 Range/Units 01:35 WBC 6.0 (4.3-11.1) K/mcL Hgb 11.4 L (12.9-16.9) g/dL Hct 34.1 L (37.5-50.1) % Plt Count 116 L (140-400) K/mcL Neutrophils # 4.4 (1.6-8.9) K/mcL BMP 02/10/18 01:35 Sodium 141 Potassium 3.5 Chloride 111 H Carbon Dioxide 25 BUN 16 Creatinine 0.91 Glucose 116 H Calcium 9.1 - Impressions Impressions Small Bowel X-Ray 02/09/18 07:49 IMPRESSION: Moderately narrowed loop of distal ileum within the right mid abdomen without bowel obstruction identified. The degree of small bowel distention has improved since the previous CT from 02/06/2018 suggesting a resolving partial small bowel obstruction. The etiology of the narrowed loop of bowel is uncertain, however, may be due to adhesions if there is history of prior abdominal surgery. D/ / 02/09/2018 10:14:14 Wagner Medrano MD / nomi Interpreting Provider: Wagner Medrano MD - VTE Documentation of Mechanical Device: Intermittent pneumatic compression device Consult Discharge Plan - Plan Referrals: Kai Mahan MD [Primary Care Provider] -
[2018-02-11] MEDS: *HR* Heparin 5,000 UNIT/ML VIAL SQ SCH (05:29)
[2018-02-11] MEDS: Pantoprazole 40 MG VIAL IVP SCH (05:29)
[2018-02-11] MEDS ORDERED: (Enzalutamide [Xtandi] 40 MG) PO SCH (09:00)
[2018-02-11] MEDS: Folic Acid 1 MG TABLET PO SCH (09:16)
[2018-02-11] MEDS: Finasteride 5 MG TABLET PO SCH (09:17)
[2018-02-11] MEDS: predniSONE 5 MG TABLET PO SCH (09:17)
[2018-02-11 13:30] LABS: Basophils % 0.5 %; Eosinophils # 0.2 K/mcL (0.0-0.6); Eosinophils % 4.2 %; Hematocrit 37.2 % (37.5-50.1); Hemoglobin 12.6 g/dL (12.9-16.9); Immature Granulocytes % 0.3 % (0-4); Lymphocytes % 16.9 %; Mean Corpuscular HGB Conc 33.9 g/dL (31.6-35.5); Mean Corpuscular Hemoglobin 31.7 pg (28.0-33.3); Mean Corpuscular Volume 93.5 fL (83.0-100.0); Mean Platelet Volume 10.5 fL (9.4-12.4); Monocytes # 0.4 K/mcL (0.0-1.3); Monocytes % 7.5 %; Platelet Count 139 K/mcL (140-400); Red Blood Count 3.98 M/mcL (4.19-5.50); Segmented Neutrophils % 70.6 %
[2018-02-11 13:49] LABS: BUN/Creatinine Ratio 13 (6-26); Blood Urea Nitrogen 13 mg/dL (8-23); Calcium 9.2 mg/dL (8.6-10.3); Carbon Dioxide 28 mEq/L (23-29); Chloride 108 mEq/L (98-107); Glucose 108 mg/dL (70-105); Osmolality,Calculated 287 (280-300); Potassium 3.4 mEq/L (3.5-5.1); Sodium 138 mEq/L (136-145); eGFR For African Americans > 60 (> 60); eGFR For Non-African Americans > 60 (> 60)
[2018-02-11 14:30] VITALS: BP 120/60
--- NOTE | 2018-02-11 14:32 | Discharge Summary ---
- NOTES TO OUTPATIENT PROVIDER Notes to Outpatient Provider: Patient did have some urinary retention which did improve- villanueva reoved. Small bowel obstruction resolved with rest-tolerating diet Date of Encounter: 02/11/18 Time of Encounter: 14:28 - Discharge Diagnosis (1) Small bowel obstruction Priority: Primary Status: Acute (2) Abdominal pain Priority: Secondary Status: Acute Qualifiers: Abdominal location: generalized Qualified Code(s): R10.84 - Generalized abdominal pain (3) Nausea and vomiting Priority: Secondary Status: Resolved Qualifiers: Vomiting type: unspecified Vomiting Intractability: unspecified Qualified Code(s): R11.2 - Nausea with vomiting, unspecified (4) Prostate cancer Priority: Secondary Status: Chronic (5) Urinary retention Priority: Secondary Status: Acute Hospital course: Mr. Roberts is a 87 year old male past medical history of prostate cancer HD hypertension hyperlipidemia surgical history of appendectomy cholecystectomy. Patient did experience 4 days of nausea vomiting associated abdominal cramps with no aggravating or relieving factors. He was unable to hold down any food or liquids. He did have a CT which did show no obstruction but a repeat CT early in the evening did show possible low-grade obstruction. He did have a Villanueva placed because he was experiencing some urinary retention while in the ER. NG tube was placed by surgery which immediately improved his symptoms. He is currently undergoing chemotherapy and radiation therapy with Dr. Saravia as well as being followed by Dr. Saravia for urology as outpatient. Patient was given IV fluids and bowel rest. He had a small bowel [id number] did show moderately narrowed loop of distal ileum within the right mid abdomen without bowel obstruction identified. His diet was advanced which he tolerated NG was discontinued. We did take out the Villanueva catheter and bladder scan patient no residual and patient is urinating without difficulty. Lab work unremarkable at this time. I did advise the patient to follow-up with primary care provider since this provider knows him best and can adjust medications accordingly. Advised patient to keep appointment with oncology and urology next week. Patient verbalized understanding he is hemodynamically stable at this time and he is ready for discharge. Discharge discussed with: patient - Time Spent with Patient Total time spent providing and/or coordinating discharge services: - Discharge Medications Home Medications: Cholecalciferol (D-3) 1,000 unit PO DAILY 03/07/15 [History] Clopidogrel [Plavix] 75 mg PO DAILY 03/07/15 [History] Folic Acid 0.4 mg PO DAILY 03/07/15 [History] Levothyroxine Sodium [Synthroid] 137 mcg PO DAILY 03/07/15 [History] Metoprolol Tartrate 25 mg PO BID 03/07/15 [History] Multivitamin [Multivitamins] 1 each PO DAILY 03/07/15 [History] [place]-3 Fatty Acids/Fish Oil [Fish Oil 1,000 mg Capsule] 1,000 mg PO DAILY 03/07 [History] Acetaminophen [Tylenol] 650 mg PO Q6HR PRN 02/28/17 [History] Polyethylene Glycol 3350 [MiraLAX] 17 gm PO DAILY PRN #30 04/13/17 [Rx] Potassium Chloride [K-Tab ER] 10 meq PO AD #15 tablet.er 10/06/17 [Rx] predniSONE [PredniSONE] 5 mg PO BIDWM #60 tablet 01/10/18 [Rx] Enzalutamide [Xtandi] 4 cap PO DAILY #120 capsule 01/18/18 [Rx] Finasteride [Proscar] 1 tab PO DAILY #30 tablet 01/18/18 [Rx] Omeprazole [PriLOSEC] 20 mg PO DAILY #30 cap 01/18/18 [Rx] Morphine Immed Rel [Morphine Sulfate] 15 mg PO Q4HR PRN 3 Days #16 tab 02/06/18 [Rx] Ondansetron ODT [Zofran ODT] 4 mg SL Q6HR PRN #12 tab.rapdis 02/06/18 [Rx] Tamsulosin [Flomax] 2 cap PO DAILY #60 cap.er.24h 02/06/18 [Rx] Atorvastatin [Lipitor] 40 mg PO HS 02/07/18 [History] Oxybutynin [Ditropan] 5 mg PO BID 02/07/18 [History] Allergies/Adverse Reactions: 3 Allergy/AdvReac Type Severity Reaction Status Date / Time aspirin Allergy See Verified 01/11/18 15:19 Comments Onion Allergy Rash Verified 01/11/18 15:19 Penicillins Allergy See Verified 01/11/18 15:19 Comments Date of admission: 02/08/18 17:06 Primary care physician: Kai Mahan MD Discharging clinician: Desire Wise Anticipated date of discharge: 02/11/18 - Constitutional Vitals: Temp Pulse Resp BP Pulse Ox 98.1 F 61 14 121/73 94 02/11/18 10:27 02/11/18 10:27 02/11/18 10:27 02/11/18 10:27 02/11/18 10:27 General appearance: Present: A&O X 3, pleasant, no acute distress - Head Head exam: Present: atraumatic, normocephalic - Eye Eye exam: Present: PERRL, conjuntiva pink, sclera anicteric Pupils: Present: PERRL - Neck Neck exam general surgery: Present: supple, trachea midline. Absent: lymphadenopathy - Respiratory Respiratory exam: Present: CTAB. Absent: accessory muscle use, rales, rhonchi, wheezes - Cardiovascular Cardiovascular exam: Present: RRR, +S1, +S2. Absent: diastolic murmur, gallop, rubs, systolic murmur - GI/Abdominal GI/Abdominal exam: Present: normal bowel sounds, soft, no peritoneal signs. Absent: distended, tenderness - Extremities Exam Extremities exam: Present: warm, radial pulses palpable and symmetrical. Absent : calf tenderness, cyanotic, pedal edema - Neurological Exam Neurological exam: Present: CN II-XII intact, oriented X3, no focal deficits. Absent: pronater drift, facial droop, speech deficit - Skin Skin exam: Present: dry, intact - Patient Status Disposition: Home, Self-Care Condition: Fair - Discharge Instructions Follow Up With: Kai Mahan MD [Primary Care Provider] - - Diet and Activity Activity: resume usual activities as tolerated Diet: advance to your usual diet - VTE Documentation of Mechanical Device: Intermittent pneumatic compression device
== END 2018-02-11 18:00 | disposition home or self-care (01) | DRG 389 ==
LOC: EMEROO 00:27 → 3ANU 00:27
PROVIDERS: ADMIT Internal Medicine Nephrology; ATTEND Internal Medicine Nephrology